=== PATIENT | female | born 1960 | race Caucasian/White ===

== ENCOUNTER 2017-01-03 15:09 | Inpatient (IN) ==
[2017-01-03] MEDS ORDERED: ONDANSETRON 4 MG/2 ML VIAL IV STA (19:33)
[2017-01-03] MEDS ORDERED: MORPHINE 2 MG/1 ML SYRINGE IV STA (19:33)
[2017-01-03] MEDS ORDERED: ONDANSETRON 4 MG/2 ML VIAL ONE (19:59)
[2017-01-03] MEDS ORDERED: MORPHINE 2 MG/1 ML SYRINGE ONE (19:59)
[2017-01-03 20:04] LABS: Basophils # 0.1 10*3/uL (0.0-0.2); Basophils % 0.5 % (0.0-0.8); Eosinophils # 0.2 10*3/uL (0.0-0.87); Hematocrit 35.7 VOL% (35.7-47.0); Hemoglobin 11.3 GM/DL (12.0-16.0); Immature Granulocytes % 0.4 %; Immature Granulocytes Absolute 0.04 #; Lymphocytes # 2.1 10*3/uL (1.4-4.0); Lymphocytes % 19.1 % (21.3-54.2); Mean Corpuscular HGB Conc 31.7 GM/DL (32-36); Mean Corpuscular Hemoglobin 26 PG (27-34); Mean Corpuscular Volume 81.7 FL (87-102); Mean Platelet Volume 8.3 FL (9.6-12.0); Monocytes # 0.8 10*3/uL (0.11-0.8); Monocytes % 6.9 % (1.7-12.7); Neutrophils # 7.7 10*3/uL (1.4-7.4); Neutrophils % 71.1 % (38.7-73.9); Platelet Count 241 T/CUMM (130-400); Red Blood Count 4.37 MC/CUMM (3.8-5.5); Red Cell Distribution Width 16.9 % (9.3-17.3); White Blood Count 10.8 T/CUMM (4-12)
[2017-01-03 20:13] LABS: Apearance,Urine CLEAR (Clear); Bilirubin,Urine Negative (Negative); Blood, Urine Small mg/dL (Negative); Glucose,Urine (UA) Negative (Negative); Hyaline Casts,Urine 2 /LPF (0-3); Ketones,Urine Negative (Negative); Mucus,Urine Occasional /LPF (Occasional); Nitrite,Urine Negative (Negative); Protein,Urine Negative; RBC,Urine 2 /HPF (0-4); Squamous Epithelial Cell,Urine Occasional /HPF (0-10); Urine Color Yellow (Yellow); Urine Specific Gravity 1.011 (1.001-1.035); Urine Urobilinogen < 2.0 EU/DL (0.2-1.0); WBC,Urine 21 /HPF (0-6)
[2017-01-03 20:37] LABS: Alanine Aminotransferase 25 U/L (13-56); Alkaline Phosphatase 188 U/L (45-117); Aspartate Amino Transferase 25 U/L (0-37); Bilirubin,Total < 0.39 MG/DL (0.2-1.0); Blood Urea Nitrogen 26 MG/DL (7-18); Glucose 104 MG/DL (74-106); Osmolality,Calculated 285.3 MOS/KG (273-304); Potassium 3.5 MMOL/L (3.5-5.1); Sodium 141 MMOL/L (136-145); Total Protein 7.8 G/DL (6.4-8.3)
[2017-01-03 20:44] LABS: Magnesium 1.8 MG/DL (1.8-2.4); Thyroid Stimulating Hormone 0.051 uIU/ml (0.358-3.74)
[2017-01-03] MEDS ORDERED: BISACODYL 5 MG TABLET PO PRN (21:28)
[2017-01-03] MEDS ORDERED: ACETAMINOPHEN 325 MG TABLET PO PRN (21:28)
--- NOTE | 2017-01-03 21:31 | Hospitalist History & Physical ---
Assessment and Plan (1) Hypocalcemia Status: Acute Current Visit: Yes (2) Postsurgical hypoparathyroidism Status: Acute Current Visit: Yes (3) Circumoral numbness Status: Acute Current Visit: Yes (4) Hypothyroidism Status: Acute Current Visit: Yes (5) Acute UTI Status: Acute Current Visit: Yes (6) Chronic kidney disease, stage 3 Status: Acute Current Visit: Yes (7) Medical non-compliance Status: Acute Assessment and plan: Plan: Observe on telemetry, EKG pending, appears sinus rhythm on monitor We will give calcium gluconate and restart her usual medication tomorrow Supportive care for muscle cramps and anxiety Renal function stable we will recheck a BMP in a.m. We will give a dose of Rocephin for presumed UTI, follow-up culture Current Visit: Yes History of Present Illness Chief complaint: Muscle aches, circumoral tingling, facial twitching History of present illness: Ms. Moreno is a 56 year old female with a history of thyroid cancer status post thyroidectomy (and parathyroidectomy) approximately 30 years ago. She has been on calcium replacement and thyroid replacement medication for many years. She apparently recently ran out of her subcutaneous calcium injection 1-2 days ago, with resultant symptoms consistent with hypocalcemia including muscle cramping, circumoral tingling/numbness, and positive Chvostek sign. She rates her pain related to muscle cramps a 6 out of 10 at worst. She feels somewhat anxious. Her calcium is modestly decreased, with a normal albumin. I was asked to admit the patient for observation in the setting of symptomatic hypocalcemia. Additionally she took several days of Cipro for UTI which she completed at least a week ago, but is still having urinary symptoms including burning on urination. UA is consistent with possible UTI. Home Medications Medication Instructions Recorded Confirmed Type Pantoprazole Tab [Protonix Tab] 40 mg PO QAM 05/24/15 11/14/16 History Levothyroxine Tab [Synthroid Tab] 100 mcg PO DAILY@0700 06/16/15 11/14/16 History Parathyroid Hormone [Natpara] 50 mcg SUBCUT QAM 10/17/16 11/14/16 History Ciprofloxacin Tab [Cipro Tab] 500 mg PO Q12HR #20 tablet 11/14/16 Rx Duloxetine HCl [Duloxetine] 60 mg PO DAILY 11/14/16 11/14/16 History Temazepam [Temazepam] 15 mg PO BEDTIME 11/14/16 11/14/16 History Allergies Allergy/AdvReac Type Severity Reaction Status Date / Time No Known Allergies Allergy Verified 05/24/15 22:38 Medical,Surgical,& Family Hx - Medical History Cardio: History of: Hypertension Psychological: History of: Depression Endocrine: History of: Thyroid Disorder (History of thyroid cancer status post thyroidectomy and parathyroidectomy), Endocrine Problems (Iatrogenic hypo- parathyroidism and hypothyroidism) Renal: History of: Renal Failure Gastrointestinal: History of: GERD Musculoskeletal: No history of: Amputation Hematology: No history of: Blood Transfusion Reaction Other: History of: Cancer (History of thyroid cancer) - Surgical History HEENT Surgeries: Surgical HX of: Thyroid Surgery Abdominal Surgeries: Surgical HX of: Appendectomy Reproductive Surgeries: Surgical HX of;: Gynecologic Surgery, Hysterectomy, Tubal Ligation Patient denies;: Genitourinary Surgery - Family History Family History: Reports;: Family Cancer (SISTER COLON), Family Diabetes, Family Heart Disease - Social History Smoking Status: Current every day smoker Have you smoked in the last 12 months: Yes Time spent discussing smoking cessation with patient: 3 to 10 minutes Frequency of Alcohol Use: None Type of Drug Use: None Marital Status: Unknown Functional capacity: independent ambulation Review of systems: A 12 point review of systems is negative except as specified in the HPI Exam - Constitutional Vitals: Period Temp Pulse Resp BP Sys/Savage Pulse Ox Last 24 Hr 97.2 F-98.2 F 98-98 20-20 139-146/81-87 100-100 Exam: EXAM: CONSTITUTIONAL: non toxic, NAD HEENT: NC, AT, OP benign, CLARK, EOMI, +Chovstek b/l CV: RRR no m/g/r RESP: clear B/L, no w/r/r GI: abd soft, NT, ND, +bowel sounds INTEGUMENTARY: no lesions or rash EXTREMITIES: no c/c/e NEURO: no focal deficits PSYCH: unremarkable, A/O x3 Results - Labs CBC & BMP: 01/03/17 19:45 01/03/17 19:45 Lab Results: I have reviewed the past 24 hour labs - EKG EKG shows: sinus rhythm (Sinus rhythm on the monitor, 12-lead pending)
--- NOTE | 2017-01-03 21:47 | Emergency Department Note ---
Oz Allne Brittany, am scribing for, and in the presence of, Jennifer Pendleton MD 19:41. Helder Allen Kathryn, MD, personally performed the services described in this documentation, ascribed by Catarina Clinton in my presence, and it is both accurate and complete . Arrival - Arrival Chief Complaint: Extremity Problem Stated Complaint: CRAMPING AND TINGLING IN LEGS AND ARMS ED Nursing Triage Note: cramping and tingling to bilat arms and legs onset x 2 days Mode of Arrival: Ambulatory Limitations: No Limitations Source: Patient Time Seen by Provider: 01/03/17 19:27 - History of Present Illness HPI Narrative: This is a 56 y/o white female with history of thyroid cancer s/p thyroidectomy who presents to the ED with c/o arm and leg cramping for past 2 days. She is currenty taking synthroid and natapura (PTH replacement), but ran out of her natapura about 1 week ago. She explains that her dose was lowered and new rx had to be ordered, hence being out for past week. Patient states she believes her calcium is low, and has had similar symptoms in past with hypocalcemia. Besides muscle spasms, she is complaining of nausea, perioral numbness and twitches in face. She denies a fever or chills, chest pain, shortness of breath , palpiations. She is having some abdominal cramps. Onset (ago): day(s) (Started 2 days ago) Consistency: constant Severity: moderate Date of Last Menstrual Period: hyster Allergies/Adverse Reactions: Allergies Allergy/AdvReac Type Severity Reaction Status Date / Time No Known Allergies Allergy Verified 05/24/15 22:38 Home Medications: Home Medications Medication Instructions Recorded Confirmed Type Pantoprazole Tab [Protonix Tab] 40 mg PO QAM 05/24/15 11/14/16 History Levothyroxine Tab [Synthroid Tab] 100 mcg PO DAILY@0700 06/16/15 11/14/16 History Parathyroid Hormone [Natpara] 50 mcg SUBCUT QAM 10/17/16 11/14/16 History Ciprofloxacin Tab [Cipro Tab] 500 mg PO Q12HR #20 tablet 11/14/16 Rx Duloxetine HCl [Duloxetine] 60 mg PO DAILY 11/14/16 11/14/16 History Temazepam [Temazepam] 15 mg PO BEDTIME 11/14/16 11/14/16 History Review of System - Review of System 12 point system: reviewed and no additional remarkable complaints except as stated - Review of System Constitutional: Absent: chills, fever Gastrointestinal: Present: abdominal pain Musculoskeletal: Present: arm pain (Bilateral arm pain ), leg pain (Bilateral leg pain ) Medical,Surgical,& Family Hx - Medical History Cardio: History of: Hypertension Psychological: History of: Depression Endocrine: History of: Thyroid Disorder (HYPOPARATHYROID) Renal: History of: Renal Failure Gastrointestinal: History of: GERD Musculoskeletal: No history of: Amputation Hematology: No history of: Blood Transfusion Reaction - Surgical History HEENT Surgeries: Surgical HX of: Thyroid Surgery Abdominal Surgeries: Surgical HX of: Appendectomy Reproductive Surgeries: Surgical HX of;: Gynecologic Surgery, Hysterectomy, Tubal Ligation Patient denies;: Genitourinary Surgery - Family History Family History: Reports;: Family Cancer (SISTER COLON), Family Diabetes, Family Heart Disease - Social History Smoking Status: Current every day smoker Frequency of Alcohol Use: None Type of Drug Use: None Exam Vital Signs: Vital Signs Temperature 98.2 F 01/03/17 18:08 Pulse Rate 98 H 01/03/17 18:08 Respiratory Rate 20 01/03/17 18:08 Blood Pressure 146/87 01/03/17 18:08 O2 Sat by Pulse Oximetry 100 01/03/17 17:10 - General General appearance: alert, in no apparent distress - Head Head exam: Present: atraumatic, normocephalic, normal inspection - Eye Eye exam: Present: normal appearance, PERRL, EOMI. Absent: nystagmus, miosis, mydriasis - ENT ENT exam: Present: normal exam, normal oropharynx, mucous membranes moist, TM's normal bilaterally, normal external ear exam - Neck Neck exam: Present: normal inspection, full ROM, trachea midline. Absent: tenderness, meningismus, lymphadenopathy, thyromegaly - Chest Chest inspection: Present: normal inspection, symmetric chest wall rise. Absent : tenderness, rash, abscess - Respiratory Respiratory exam: Present: normal lung sounds bilaterally. Absent: rales, respiratory distress, rhonchi, stridor, wheezes - Cardiovascular Cardiovascular exam: Present: regular rate, normal rhythm, normal heart sounds. Absent: murmur, rubs, gallop, clicks - Abdominal Exam Abdominal exam: Present: soft, normal bowel sounds. Absent: distention, tenderness, guarding, rebound, rigidity - Rectal Exam Rectal exam: Present: deferred - Extremities Exam Extremities exam: Present: normal inspection, full ROM, normal capillary refill. Absent: tenderness, pedal edema, joint swelling, calf tenderness - Back Exam Back exam: Present: normal inspection, full ROM. Absent: tenderness, muscle spasm, rashes - Neurological Exam Neurological exam: Present: alert, oriented X3, CN II-XII intact. Absent: motor sensory deficit - Psychiatric Psychiatric exam: Present: normal affect, normal mood. Absent: depressed, agitated, anxious, flat affect, manic - Skin Skin exam: Present: warm, dry, intact, normal color. Absent: rash, cyanosis, diaphoresis, erythema, pallor, mottled Course - Consultations Consultation #1: Discussed with hospitalist for admission for IV calcium repletion and monitoring. Results - Labs CBC & BMP: 01/03/17 19:45 01/03/17 19:45 Labs: Calcium 7.0, albumin 4.0 - EKG EKG results: interpreted by CARMELA DUVAL (QTc: 440) Disposition Clinical Impression: Hypocalcemia Case discussed with: patient Disposition: Still a Patient Condition: Stable Time of Disposition: 21:46
[2017-01-03] MEDS ORDERED: CALCIUM GLUCONATE 2,000 MG in SODIUM CHLORIDE 0.9% 100 ML IV ONE (23:00)
[2017-01-03] MEDS ORDERED: cefTRIAXone 1,000 MG in SODIUM CHLORIDE 0.9% 100 ML IV SCH (23:30)
[2017-01-03] MEDS: ONDANSETRON 4 MG/2 ML VIAL IV PRN (23:42)
[2017-01-04 05:03] LABS: Basophils % 0.4 % (0.0-0.8); Eosinophils # 0.2 10*3/uL (0.0-0.87); Eosinophils % 2.9 % (0.00-10.9); Hematocrit 30.3 VOL% (35.7-47.0); Hemoglobin 9.6 GM/DL (12.0-16.0); Immature Granulocytes % 0.2 %; Immature Granulocytes Absolute 0.02 #; Lymphocytes # 2.1 10*3/uL (1.4-4.0); Lymphocytes % 25.9 % (21.3-54.2); Mean Corpuscular HGB Conc 31.7 GM/DL (32-36); Mean Corpuscular Hemoglobin 26 PG (27-34); Mean Corpuscular Volume 81.7 FL (87-102); Mean Platelet Volume 8.7 FL (9.6-12.0); Monocytes # 0.7 10*3/uL (0.11-0.8); Monocytes % 8.9 % (1.7-12.7); Neutrophils # 5.1 10*3/uL (1.4-7.4); Neutrophils % 61.7 % (38.7-73.9); Platelet Count 204 T/CUMM (130-400); Red Blood Count 3.71 MC/CUMM (3.8-5.5); Red Cell Distribution Width 16.7 % (9.3-17.3); White Blood Count 8.2 T/CUMM (4-12)
[2017-01-04 05:29] LABS: Alanine Aminotransferase 17 U/L (13-56); Albumin 3.1 G/DL (3.4-5.0); Alkaline Phosphatase 143 U/L (45-117); Aspartate Amino Transferase 18 U/L (0-37); Bilirubin,Total < 0.39 MG/DL (0.2-1.0); Blood Urea Nitrogen 24 MG/DL (7-18); Calcium 7.1 MG/DL (8.5-10.1); Glucose 107 MG/DL (74-106); Magnesium 1.8 MG/DL (1.8-2.4); Potassium 3.7 MMOL/L (3.5-5.1); Sodium 143 MMOL/L (136-145); Total Protein 6.3 G/DL (6.4-8.3)
[2017-01-04] MEDS: ONDANSETRON 4 MG/2 ML VIAL IV PRN ×2 (05:58→11:51)
--- NOTE | 2017-01-04 06:51 | EKG Report ---
Stationary ECG Study [facility] Test Date: 01/03/2017 7:44:37 PM Pat Name: VITA OLSON Department: Room: 284 Gender: F Donations Attendant: : 1960 Requested by: Jennifer Pendleton Order Number: [id number] Reading MD: NATALEE KERR Intervals [place] Rate: 83 P: 69 TN: 140 QRS: 23 QRSD: 73 T: 64 QT: 400 QTc: 440 Interpretive Statements SINUS RHYTHM POSSIBLE RIGHT ATRIAL ENLARGEMENT Electronically Signed On 01-04-17 09:05:47 CDT by NATALEE KERR [email or web address]
[2017-01-04] MEDS ORDERED: LEVOTHYROXINE 100 MCG TABLET PO SCH (07:00)
[2017-01-04] MEDS ORDERED: PANTOPRAZOLE 40 MG TABLET PO SCH (09:00)
[2017-01-04] MEDS ORDERED: [UNRECOGNIZED DRUG - OTHER] SUBCUT SCH (09:00)
[2017-01-04] MEDS ORDERED: DULoxetine 30 MG CAPSULE PO SCH (09:00)
--- NOTE | 2017-01-04 10:29 | Hospitalist Progress Note ---
Hospitalist: Subjective Interval history: She tells me she came with chest pain and shortness of breath and these symptoms have resolved. H&P reviewed- her calcium is up a little this morning. She denies cramping, tingling or numbness around her mouth, Chvostek sign negative. Usual home meds resumed this morning. Exam - Constitutional Vitals: Period Temp Pulse Resp BP Sys/Savage Pulse Ox Last 24 Hr 96.7 F-98.2 F 83-98 18-20 131-158/63-95 100-100 Results - Labs CBC & BMP: 01/04/17 04:07 01/04/17 04:07
[2017-01-04] MEDS ORDERED: CALCIUM CARBONATE CHEW 500 MG TABLET PO SCH (11:30)
[2017-01-04 11:37] VITALS: BP 125/65
--- NOTE | 2017-01-04 12:54 | Discharge Summary ---
Hospital Course - Hospital Course Hospital Course: Mrs Moreno presented with signs and symptoms of hypocalcemia. She has been out of her subQ parathyroid hormone for 6 days and had become symptomaitc. It has arrived at her home today. She was treated for her calcium or 7 with calcium gluconate. Her initial albumin was 4 but it is 3.1 this morning and her calcium is 7.1. Her symptoms have improved though she still has some tingling and a mild feeling of cramps. She will receive anouth 2g of calcium gluconate and then be discharged home on Tums 2 tid for several days and to resume her subQ parathyroid replacement. She also has WBC in her urine, the culture has not returned yet and she has received a dose of ceftriaxone here. I will send her home on Cipro. She will follow up with her DR Beasley for culture results in 3 days. - Time spent with patient Time with patient DS: Greater than 30 minutes (exam, review of records, documentation, medicine reconciliation took 36 minutes.) Diagnosis - Discharge Diagnosis (1) Acute UTI Status: Acute (2) Chronic kidney disease, stage 3 Status: Chronic (3) Medical non-compliance Status: Acute (4) Postsurgical hypoparathyroidism Status: Chronic (5) Hypothyroidism Status: Chronic (6) Hypocalcemia Status: Acute Specialty Discharge - Follow Up or Referrals Follow up with: Oliver Beasley MD [Physician] - 3 Days Discharge Plan - Discharge Data Disposition: Disch To Home/Self Care Condition at Discharge: Stable Discharge Diet: diabetic diet, heart healthy Activity: resume usual activities as tolerated - Discharge Medications New Calcium Carbonate Chew [Tums] 2 tablet PO TIDAC tablet Ciprofloxacin Tab [Cipro Tab] 250 mg PO BID #10 tablet Continue Pantoprazole Tab [Protonix Tab] 40 mg PO QAM Levothyroxine Tab [Synthroid Tab] 50 mcg PO DAILY@0700 Duloxetine HCl [Duloxetine] 60 mg PO DAILY Temazepam 30 mg PO BEDTIME Parathyroid Hormone [Natpara] 50 mcg SUBCUT QAM - Follow Up or Referral - Forms/Instructions Exam - Constitutional Vitals: Period Temp Pulse Resp BP Sys/Savage Pulse Ox Last 24 Hr 96.7 F-98.2 F 83-98 18-20 125-158/63-95 100-100 General appearance: normal weight, no acute distress - Head Head exam: Present: normocephalic, atraumatic - Eye Eye exam: Present: EOMI. Absent: scleral icterus - Respiratory Respiratory exam: Present: clear to auscultation bilaterally - Cardiovascular Cardiovascular exam: Present: regular rate and rhythm - GI/Abdominal GI/Abdominal exam: Present: normal bowel sounds, soft. Absent: tenderness - Extremities Exam Extremities exam: Absent: edema - Neurological Exam Neurological exam: Present: alert, oriented X3, CN II-XII intact, other ( negative chvostek sign. ). Absent: motor sensory deficit - Skin Skin exam: Present: warm, dry Discharge Results Procedures and tests throughout hospitalization: Pending Orders 01/03/17 Urine Culture Routine Labs on day of discharge: Labs from last 24 hours 01/04/17 01/04/17 01/03/17 04:07 04:07 19:46 WBC 8.2 RBC 3.71 L Hgb 9.6 L Hct 30.3 L MCV 81.7 L MCH 26 L MCHC 31.7 L RDW 16.7 Plt Count 204 MPV 8.7 L Neut % (Auto) 61.7 Lymph % (Auto) 25.9 [place] % (Auto) 8.9 Eos % (Auto) 2.9 Baso % (Auto) 0.4 Neut # (Auto) 5.1 Lymph # (Auto) 2.1 [place] # (Auto) 0.7 Eos # (Auto) 0.2 Baso # (Auto) 0.0 Immature Gran % 0.2 Nucleated RBC % 0.0 Immature Gran # 0.02 Nucleated RBCs # 0.00 Sodium 143 Potassium 3.7 Chloride 107 Carbon Dioxide 26 Anion Gap 13.7 BUN 24 H Creatinine 1.40 H GFR Calculation 38 BUN/Creatinine Ratio 17.00 Glucose 107 H Calculated Osmolality 288.0 Calcium 7.1 L Magnesium 1.8 Total Bilirubin < 0.39 AST 18 ALT 17 Alkaline Phosphatase 143 H Total Protein 6.3 L Albumin 3.1 L Globulin 3.2 Albumin/Globulin Ratio 0.9 L TSH 3rd Generation Urine Color Yellow Urine Appearance Clear Urine pH 5.0 Ur Specific [place] 1.011 Urine Protein Negative Urine Glucose (UA) Negative Urine Ketones Negative Urine Blood Small Urine Nitrate Negative Urine Bilirubin Negative Urine Urobilinogen < 2.0 H Urine Leukocytes Moderate H Urine RBC 2 Urine WBC 21 Ur Squamous Epith Cells Occasional Hyaline Casts 2 Urine Mucus Occasional Ur Culture Indicated? Results to follow 01/03/17 01/03/17 01/03/17 19:45 19:45 19:45 WBC 10.8 RBC 4.37 Hgb 11.3 L Hct 35.7 MCV 81.7 L MCH 26 L MCHC 31.7 L RDW 16.9 Plt Count 241 MPV 8.3 L Neut % (Auto) 71.1 Lymph % (Auto) 19.1 L [place] % (Auto) 6.9 Eos % (Auto) 2.0 Baso % (Auto) 0.5 Neut # (Auto) 7.7 H Lymph # (Auto) 2.1 [place] # (Auto) 0.8 Eos # (Auto) 0.2 Baso # (Auto) 0.1 Immature Gran % 0.4 Nucleated RBC % 0.0 Immature Gran # 0.04 Nucleated RBCs # 0.00 Sodium 141 Potassium 3.5 Chloride 103 Carbon Dioxide 26 Anion Gap 15.5 H BUN 26 H Creatinine 1.50 H GFR Calculation 34 BUN/Creatinine Ratio 17.00 Glucose 104 Calculated Osmolality 285.3 Calcium 7.0 L Magnesium 1.8 Total Bilirubin < 0.39 AST 25 ALT 25 Alkaline Phosphatase 188 H Total Protein 7.8 Albumin 4.0 Globulin 3.8 H Albumin/Globulin Ratio 1.0 L TSH 3rd Generation 0.051 L Urine Color Urine Appearance Urine pH Ur Specific [place] Urine Protein Urine Glucose (UA) Urine Ketones Urine Blood Urine Nitrate Urine Bilirubin Urine Urobilinogen Urine Leukocytes Urine RBC Urine WBC Ur Squamous Epith Cells Hyaline Casts Urine Mucus Ur Culture Indicated? Preliminary micro results at discharge 01/03/17 Unknown Urine Culture - Preliminary Urine,Voided No Growth at 12 hours. DS: Provider Date of admission: 01/04/17 08:41 Primary care physician: . No PCP Attending physician on admission: Brent Dia DO Discharging clinician: Jessica Urrutia MD
[2017-01-04] MEDS ORDERED: CALCIUM GLUCONATE 2,000 MG in SODIUM CHLORIDE 0.9% 100 ML IV ONE (13:00)
[2017-01-04] MEDS ORDERED: TEMAZEPAM 15 MG CAPSULE PO SCH (21:00)
== END 2017-01-04 14:58 | disposition home or self-care (01) | DRG 641 ==
LOC: N.TELEN 15:09 → N.ED 15:09 → SUATTDRO 21:28 → N.TELEN 22:08
PROVIDERS: ADMIT Internal Medicine; ATTEND Internal Medicine